=== PATIENT | female | born 1960 | race Caucasian/White ===

== ENCOUNTER 2020-03-12 17:27 | Emergency (ER) | payer SELFPAY ==
[~2020-03-12] VITALS: Ht 165.1 cm; Wt 108.9 kg
[~2020-03-12 17:27] MED LIST: CHOLESTIN PO; EPI EZ PEN1 MG/ML IM; EPIPEN 2-PAK1 MG/M1 MR; FLONASE 0.05% 121 EA NAS; OYSCO 500500 M1 PO; PEPCID20 MG PO; PREDNICOT10 MG PO; VITAMINS; ZITHROMAX Z PA250 MG PO; [UNRECOGNIZED DRUG - OTHER] PO
[2020-03-12] MEDS ORDERED: SEPTDS PO (17:48)
[2020-03-12] MEDS ORDERED: CEPHALEXIN500 M1 PO (17:48)
== END 2020-03-12 18:21 | disposition home or self-care (01) ==
LOC: ED 17:27
DX: L03.113 Cellulitis of right upper limb (principal); G43.909 Migraine, unspecified, not intractable, without status migrainosus; Z79.899 Other long term (current) drug therapy

== ENCOUNTER → 2023-04-11 | Outpatient (CLI) | payer SELFPAY ==
[~2023-04-11] MED LIST changes: +CEPHALEXIN500 M1 PO; +SEPTDS PO
== END | disposition home or self-care (01) ==
LOC: RESCLI 15:50
PROVIDERS: ATTEND Internal Medicine
DX: G43.909 Migraine, unspecified, not intractable, without status migrainosus (principal); M79.671 Pain in right foot; E55.9 Vitamin D deficiency, unspecified; T78.2XXA Anaphylactic shock, unspecified, initial encounter; Z98.890 Other specified postprocedural states; Z91.040 Latex allergy status; Z88.8 Allergy status to other drugs, medicaments and biological substances; Z82.49 Family history of ischemic heart disease and other diseases of the circulatory system; Z79.899 Other long term (current) drug therapy

== ENCOUNTER → 2024-10-16 | Outpatient (CLI) | payer MEDICARE | END | disposition home or self-care (01) | LOC: RAD 11:18 | PROVIDERS: ATTEND Chiropractor | DX: M17.0 Bilateral primary osteoarthritis of knee (principal); M25.562 Pain in left knee; M25.561 Pain in right knee ==

== ENCOUNTER → 2024-11-17 | Outpatient (CLI) | payer MEDICARE | END | disposition home or self-care (01) | LOC: RAD 02:06 → MAMMO 11:30 | PROVIDERS: ATTEND Internal Medicine | DX: Z12.31 Encounter for screening mammogram for malignant neoplasm of breast (principal); Z13.820 Encounter for screening for osteoporosis; Z78.0 Asymptomatic menopausal state ==